=== PATIENT | female | born 1970 | race Caucasian/White ===

== ENCOUNTER 2016-05-05 15:44 | Emergency (ER) | payer MEDICAID ==
[~2016-05-05] VITALS: Wt 68.2 kg
[~2016-05-05 15:44] MED LIST: ACET1TAB40 PO; CETI10CA PO; PANT40TA3 PO; POLY10DR19 LEFT EYE
[2016-05-05] MEDS ORDERED: ONDANSETRON (ODT) 4 MG TAB ODT STA (16:08)
[2016-05-05] MEDS ORDERED: FAMOTIDINE 20 MG TAB PO STA (16:08)
[2016-05-05] MEDS ORDERED: ACETAMINOPHEN 325 MG TAB PO ONE (16:30)
[2016-05-05 16:42] LABS: BASOPHILS % 0.3 % (0.0-2.0); EOSINOPHILS # 0.1 10^3/ul (0.0-0.5); EOSINOPHILS % 2.3 % (0.0-7.0); HEMATOCRIT 39.6 % (37.0-47.0); HEMOGLOBIN 13.5 g/dl (12.0-16.0); LYMPHOCYTES # 1.3 10^3/ul (0.8-2.9); LYMPHOCYTES % 28.3 % (15.0-51.0); MEAN CORPUSCULAR HEMOGLOBIN 32.4 pg (29.0-33.0); MEAN CORPUSCULAR HGB CONC 34.2 g/dl (32.0-37.0); MEAN CORPUSCULAR VOLUME 94.8 fl (82.0-101.0); MEAN PLATELET VOLUME 9.1 fl (7.4-10.4); MONOCYTE # 0.3 10^3/ul (0.3-0.9); MONOCYTES % 7.7 % (0.0-11.0); NEUTROPHIL # 2.8 10^3/ul (1.6-7.5); NEUTROPHILS % 61.4 % (39.0-77.0); PLATELET COUNT 218 10^3/UL (140-440); RED BLOOD COUNT 4.18 10^6/ul (4.20-5.40); RED CELL DISTRIBUTION WIDTH 12.9 % (11.5-14.5); UNCORRECTED WBC 4.5 10^3/ul (4.8-10.8); WHITE BLOOD COUNT 4.5 10^3/ul (4.8-10.8)
[2016-05-05 16:43] LABS: CONDITION 1
[2016-05-05 16:51] LABS: ADD UMIC YES; URINE BILIRUBIN (Dip) NEGATIVE (NEGATIVE); URINE BLOOD (Dip) 2+ (NEGATIVE); URINE COLOR LT. YELLOW (YELLOW); URINE GLUCOSE (Dip) NEGATIVE (NEGATIVE); URINE KETONES (Dip) NEGATIVE (NEGATIVE); URINE LEUKOCYTE ESTERASE (Dip) NEGATIVE (NEGATIVE); URINE NITRITE (Dip) NEGATIVE (NEGATIVE); URINE TOTAL PROTEIN (Dip) NEGATIVE (NEGATIVE); URINE UROBILINOGEN (Dip) 0.2 E.U./dL (0.1-1.0)
[2016-05-05 17:02] LABS: BACTERIA,URINE RARE; SQUAMOUS EPITHELIAL CELL,UR FEW
[2016-05-05 17:03] LABS: ALBUMIN 4.2 g/dl (3.3-4.9); POTASSIUM 4.6 mmol/L (3.5-5.1)
--- NOTE | 2016-05-05 17:04 | RADRPT ---
PROCEDURE: US Abdomen. CLINICAL INDICATION: abdominal pain TECHNIQUE: Multiple real-time images were acquired of the patient's right upper quadrant abdomen a nd retroperitoneum utilizing a high resolution transducer. COMPARISON: None FINDINGS: The liver demonstrates normal echogenicity. The liver is normal in size and no focal solid lesions are seen. The liver measures 13.9 cm in length. The portal vein is patent with normal direction of f low. No intrahepatic biliary dilatation is seen. No gallstones are identified within the gallbladder. There is no pericholecystic fluid or gallbladd er wall thickening. The common bile duct measures 3.6 mm in maximal dimension. The visualized portions of the pancreas are unremarkable. The tail of the pancreas is not seen. No free fluid is identified. The right kidney is normal in size, and demonstrate normal echogenicity and cortical thickness. The right kidney measures 9.3 cm in long dimension. There is no evidence of hydronephrosis. There are no kidney stones. RPTAT: AA IMPRESSION: Unremarkable right upper quadrant abdominal ultrasound. .Anshu Meyer MD, Date Time Electronically viewed and signed by .Anshu Meyer MD, MD on 05/05/2016 17:04 .S/
[2016-05-05 17:05] LABS: CREATININE 0.58 mg/dl (0.44-1.00)
[2016-05-05 17:06] LABS: ALBUMIN/GLOBULIN RATIO 1.4; BILIRUBIN,INDIRECT 0.3 mg/dl (0-1.1); BILIRUBIN,TOTAL 0.3 mg/dl (0.2-1.3); CALCIUM 9.7 mg/dl (8.4-10.2); TOTAL PROTEIN 7.2 g/dl (6.1-8.1)
[2016-05-05] MEDS ORDERED: ONDA8TAB14 PO (17:21)
[2016-05-05] MEDS ORDERED: ACET500C5 PO (17:21)
[2016-05-05] MEDS ORDERED: FAMO-18 PO (17:21)
--- NOTE | 2016-05-05 17:25 | ERD ---
ER Documentation Chief Complaint Date/Time DATE: 05/05/16 TIME: 17:23 Chief Complaint abd pain for the past 3 days. nausea no vomiting. HPI This 46-year-old female presents with epigastric abdominal pain for last 3 days. She has nausea but no vomiting. She denies diarrhea, urinary complaints , cough, chest pain. ROS All systems reviewed and are negative except as per history of present illness. Medications Home Meds Active Scripts Famotidine* (Pepcid*) 20 Mg Tablet, 20 MG PO BID, #20 TAB Prov:JEAN-CLAUDE CISNEROS MD 05/05/16 Ondansetron (Ondansetron Odt) 8 Mg Tab.rapdis, 8 MG PO Q6H Y for NAUSEA AND/OR VOMITING, #8 TAB Prov:JEAN-CLAUDE CISNEROS MD 05/05/16 Acetaminophen* (Tylophen*) 500 Mg Capsule, 1 CAP PO Q6H Y for PAIN AND OR ELEVATED TEMP, #15 CAP Prov:JEAN-CLAUDE CISNEROS MD 05/05/16 Cetirizine Hcl* (Zyrtec*) 10 Mg Capsule, 10 MG PO DAILY, #30 TAB.CHEW Prov:ZACH ANDRES PA-C 12/10/15 Polymyxin B Sulfate-TMP* (Polymyxin B-TMP Eye Drops*) 10 Ml Drops, 1 DROP LEFT EYE QID for 7 Days, EA Prov:ZACH ANDRES PA-C 12/10/15 Acetaminophen with Codeine (Acetaminophen-Cod #3 Tablet) 1 Each Tablet, 1 TAB PO Q6H, #12 TAB Prov:JEAN-CLAUDE CISNEROS MD 11/20/15 Pantoprazole* (Protonix*) 40 Mg Tablet.dr, 40 MG PO DAILY for 30 Days, TAB Prov:JEAN-CLAUDE CISNEROS MD 11/20/15 Allergies Allergies: Coded Allergies: No Known Drug Allergies (Verified Allergy, Mild, 10/28/09) PMhx/Soc Medical and Surgical Hx: pt denies Medical Hx, pt denies Surgical Hx Hx Alcohol Use: No Hx Substance Use: No Hx Tobacco Use: No Smoking Status: Never smoker Physical Exam Vitals Vital Signs Date Time Temp Pulse Resp B/P Pulse Ox O2 Delivery O2 Flow Rate FiO2 05/05/16 15:47 97.8 55 20 146/91 98 Physical Exam Const: [] Alert, [id number] per Head: Atraumatic Eyes: Normal Conjunctiva ENT: Normal External Ears, Nose and Mouth. Neck: Full range of motion..~ No meningismus. Resp: Clear to auscultation bilaterally Cardio: Regular rate and rhythm, no murmurs Abd: Soft, minimal epigastric tenderness, non distended. Normal bowel sounds. No tenderness at McBurney's point and no exquisite Carrillo sign. No rebound. Skin: No petechiae or rashes Back: No midline or flank tenderness Ext: No cyanosis, or edema Neur: Awake and alert Psych: Normal Mood and Affect Result Diagram: 05/05/16 1615 05/05/16 1615 Results 24 hrs Laboratory Tests Test 05/05/16 16:15 Alanine Aminotransferase (ALT/SGPT) 32IU/L Albumin 4.2g/dl Albumin/Globulin Ratio 1.40 Alkaline Phosphatase 80IU/L Anion Gap 16 Aspartate Amino Transf (AST/SGOT) 37IU/L Basophils # 0.010^3/ul Basophils % 0.3% Blood Urea Nitrogen 16mg/dl Calcium Level 9.7mg/dl Carbon Dioxide Level 28mmol/L Chloride Level 102mmol/L Creatinine 0.58mg/dl Direct Bilirubin 0.00mg/dl Eosinophils # 0.110^3/ul Eosinophils % 2.3% Globulin 3.00g/dl Glucose Level 111mg/dl Hematocrit 39.6% Hemoglobin 13.5g/dl Indirect Bilirubin 0.3mg/dl Lipase 98U/L Lymphocytes # 1.310^3/ul Lymphocytes % 28.3% Mean Corpuscular Hemoglobin 32.4pg Mean Corpuscular Hemoglobin Concent 34.2g/dl Mean Corpuscular Volume 94.8fl Mean Platelet Volume 9.1fl Monocytes # 0.310^3/ul Monocytes % 7.7% Neutrophils # 2.810^3/ul Neutrophils % 61.4% Nucleated Red Blood Cells # 0.010^3/ul Nucleated Red Blood Cells % 0.0/100WBC Platelet Count 97098^3/UL Potassium Level 4.6mmol/L Red Blood Count 4.1810^6/ul Red Cell Distribution Width 12.9% Sodium Level 141mmol/L Total Bilirubin 0.3mg/dl Total Protein 7.2g/dl Urine Bacteria RARE Urine Bilirubin NEGATIVE Urine Clarity CLEAR Urine Color LT. YELLOW Urine Glucose NEGATIVE% Urine Hemoglobin 2+ Urine Ketones NEGATIVE Urine Leukocyte Esterase NEGATIVE Urine Microscopic RBC 5-10/HPF Urine Microscopic WBC 0-2/HPF Urine Nitrite NEGATIVE Urine Specific [place] 1.015 Urine Squamous Epithelial Cells FEW Urine Total Protein NEGATIVE Urine Urobilinogen 0.2 E.U./dL Urine pH 7.0 White Blood Count 4.510^3/ul Current Medications Medications (Trade) Dose Ordered Sig/Johnson Route PRN Reason Start Time Stop Time Status Last Admin Dose Admin Famotidine (Pepcid) 20 mg ONCE STAT PO 05/05/16 16:08 05/05/16 16:09 05/05/16 16:31 Ondansetron HCl (Zofran Odt) 8 mg ONCE STAT ODT 05/05/16 16:08 05/05/16 16:09 05/05/16 16:30 Acetaminophen (Tylenol Tab) 650 mg ONCE ONCE PO 05/05/16 16:30 05/05/16 16:31 05/05/16 16:31 Procedures/MDM CBC shows white blood scan of 4.5. CBC otherwise normal. CMP normal and lipase normal. Urine shows hemoglobin without leukocytes, nitrites or glucose. HCG is negative. Right upper quadrant ultrasound shows no acute abnormalities. Patient is given Tylenol and Zofran and minimal tenderness on serial exam. Patient signs and symptoms of gastroenteritis or possibly gastritis. Signs or symptoms do not suggest hepatobiliary disease, appendicitis , acute abdomen, chest pain or pneumonia. She will be treated with Pepcid and Tylenol and Zofran at home and instructions to follow-up with primary doctor this week return to the ER for new or worsening symptoms. Departure Diagnosis: Primary Impression: Abdominal pain Abdominal location: epigastric Qualified Code: R10.13 - Epigastric pain Condition: Stable Patient Instructions: Abdominal Pain Additional Instructions: Examines normal hoy. Cheque otro vez con velazquez doctor primario en el proximo pascal or regresa para mas o nueva simptomas. probablamente un virus que dura 2-4 pascal. cheque otro radha el proximo faizan para mas simptomas- vomito, dolor, mariam, problemas con respirando, o con velazquez doctor primario. JEAN-CLAUDE CISNEROS MD May 05, 2016 17:25
== END 2016-05-05 17:37 | disposition home or self-care (01) ==
LOC: FTE 15:44
DX: R10.13 Epigastric pain (principal); R11.0 Nausea
CPT/HCPCS: 36415; 76705; 80053; 81001; 83690; 85025; Z7502; Z7610; 81003

== ENCOUNTER 2016-11-11 14:03 | Emergency (ER) | payer MEDICAID ==
[~2016-11-11] VITALS: Ht 165.1 cm; Wt 67.0 kg
[~2016-11-11 14:03] MED LIST changes: +ACET500C5 PO; +FAMO-96 PO; +ONDA8TAB14 PO; +SUCR1TAB56 PO
[2016-11-11 14:10] VITALS: Ht 165.1 cm; Wt 67.0 kg
[2016-11-11] MEDS ORDERED: ONDANSETRON (ODT) 4 MG TAB ODT STA (14:30)
[2016-11-11] MEDS ORDERED: HYDROCODONE/APAP (5/325) TAB PO ONE (14:30)
[2016-11-11 15:15] LABS: BASOPHILS % 0.4 % (0.0-2.0); EOSINOPHILS # 0.2 10^3/ul (0.0-0.5); HEMATOCRIT 38.9 % (37.0-47.0); HEMOGLOBIN 12.9 g/dl (12.0-16.0); LYMPHOCYTES # 1.2 10^3/ul (0.8-2.9); LYMPHOCYTES % 23.6 % (15.0-51.0); MEAN CORPUSCULAR HEMOGLOBIN 30.9 pg (29.0-33.0); MEAN CORPUSCULAR HGB CONC 33.2 g/dl (32.0-37.0); MEAN CORPUSCULAR VOLUME 93.1 fl (82.0-101.0); MEAN PLATELET VOLUME 10.4 fl (7.4-10.4); MONOCYTE # 0.4 10^3/ul (0.3-0.9); MONOCYTES % 7.8 % (0.0-11.0); NEUTROPHILS % 64.8 % (39.0-77.0); PLATELET COUNT 212 10^3/UL (140-415); RED BLOOD COUNT 4.18 10^6/ul (4.20-5.40); RED CELL DISTRIBUTION WIDTH 12.9 % (11.5-14.5)
[2016-11-11 15:28] LABS: ADD UMIC YES; UR ASCORBIC ACID NEGATIVE (NEGATIVE); UR BACTERIA FEW /HPF (NONE SEEN); UR BILIRUBIN (Dip) NEGATIVE (NEGATIVE); UR BLOOD (Dip) 3+ mg/dL (NEGATIVE); UR CLARITY SLIGHTLY CLOUDY (CLEAR); UR COLOR YELLOW (YELLOW); UR GLUCOSE (Dip) NEGATIVE (NEGATIVE); UR KETONES (Dip) NEGATIVE (NEGATIVE); UR LEUKOCYTE ESTERASE (Dip) TRACE Leu/ul (NEGATIVE); UR MUCUS FEW /HPF (NONE SEEN); UR NITRITE (Dip) NEGATIVE (NEGATIVE); UR RBC 2 /HPF (0-5); UR SQUAMOUS EPITHELIAL CELL FEW /HPF (FEW); UR TOTAL PROTEIN (Dip) NEGATIVE (NEGATIVE); UR UROBILINOGEN (Dip) NEGATIVE (NEGATIVE)
--- NOTE | 2016-11-11 15:32 | RADRPT ---
PROCEDURE: CT abdomen and pelvis without contrast. CLINICAL INDICATION: Abdominal pain. TECHNIQUE: CT of the abdomen and pelvis without contrast was performed on a multidetector high-reso lution CT scanner. Coronal and sagittal reformatted images were obtained from the axial source image s. Images were reviewed on a high-resolution PACS workstation. The total exam CTDI equals 8.82 mGy a nd the total exam DLP equals 469.29 mGy-cm. One or more of the following dose reduction techniques were used: - Automated exposure control. - Adjustment of the mA and/or kV according to patient size. - Use of iterative reconstruction technique. COMPARISON: Abdominal ultrasound dated 05/05/2016. FINDINGS: Visualized lower thorax: The visualized lung bases are clear. The visualized heart is unremarkable. Hepatobiliary system and spleen: The liver is grossly unremarkable. There is no intra or extrahepat ic biliary ductal dilatation. The gallbladder is grossly unremarkable. The spleen is grossly unremar kable. The pancreas is grossly unremarkable. Adrenal glands and genitourinary system: The adrenal glands are grossly unremarkable. There is no n ephrolithiasis or hydronephrosis. The urinary bladder is grossly unremarkable. The uterus is retrof lexed, but otherwise grossly unremarkable. The adnexa are grossly unremarkable. Gastrointestinal system: The stomach and small bowel are unremarkable. There is no bowel wall thick ening or evidence of obstruction. The appendix is not identified, but there are no secondary finding s of appendicitis. Peritoneum, vascular, and lymphatics: There is no free intraperitoneal air or free fluid. There is no mesenteric or retroperitoneal adenopathy. The aorta is nonaneurysmal. Musculoskeletal system and soft tissues: There are no concerning osseous lesions. The soft tissues are unremarkable. IMPRESSION: 1. No acute abnormality or findings to suggest a source of the patient's symptoms. RPTAT: HLBP .Obey Camargo MD, MD Date Time Electronically viewed and signed by .bOey Camargo MD, MD on 11/11/2016 15:31 .P/
--- NOTE | 2016-11-11 15:33 | RADRPT ---
PROCEDURE: US Pelvis CLINICAL INDICATION: Pelvic pain TECHNIQUE: Sonographic evaluation of the pelvis was performed utilizing both transabdominal and tr ansvaginal technique. Curved array transabdominal transducer technique as well as a high frequency endovaginal probe was utilized. Images were reviewed on the high-resolution PACS workstation. COMPARISON: None available FINDINGS: The uterus is normal in size, echogenicity, and morphology measuring 7.0 x 4.3 x 4.5 cm in dimension . The uterus is retroverted. The endometrium measures 6.5 mm in diameter. The normal trilaminar stripe of the endometrium is preserved. Cervical Nabothian cyst is incidentally noted. The right ovary measures 2.5 x 1.5 x 1.8 cm in dimension. The left ovary measures 2.5 x 1.3 x 1.8 c m in dimension. No ovarian torsion or adnexal mass is identified. Trace amount of pelvic free flui d is noted. IMPRESSION: 1. Nonspecific trace amount of pelvic free fluid is seen, possibly physiologic. 2. Retroverted uterus. 3. Otherwise unremarkable exam. RPTAT: HDWR .Roosevelt Yates MD, MD Date Time Electronically viewed and signed by .Roosevelt Yates MD, MD on 11/11/2016 15:32 .R/
[2016-11-11 15:41] LABS: ALBUMIN 4.4 g/dl (3.3-4.9); ALBUMIN/GLOBULIN RATIO 1.33; BILIRUBIN,INDIRECT 0.3 mg/dl (0-1.1); BILIRUBIN,TOTAL 0.3 mg/dl (0.2-1.3); CALCIUM 9.1 mg/dl (8.4-10.2); CREATININE 0.72 mg/dl (0.44-1.00); POTASSIUM 3.7 mmol/L (3.5-5.1); TOTAL PROTEIN 7.7 g/dl (6.1-8.1)
--- NOTE | 2016-11-11 15:42 | ERD ---
ER Documentation Chief Complaint Date/Time DATE: 11/11/16 TIME: 15:39 Chief Complaint Complains od pelvic pain x 1 week HPI 46-year-old female patient with no significant past medical history presents the ED complaining of abdominal pain that started intermittently for 2 weeks. Reports that her last menses was 2 months ago. States that she is not . Describes the pain as achy and rates it a 8 out of 10. Reports that it is diffusely painful however it is predominantly in her left upper and lower quadrants. Reports that she has some slight dysuria. Reports that she has been taking omeprazole, sucralfate, Reglan. States that she was seen at all of you and had a negative ultrasound as well as blood work however the pain still persists. Denies any vaginal discharge, vaginal bleeding, vomiting, diarrhea, urgency, frequency, hematuria. ROS All systems reviewed and are negative except as per history of present illness. Medications Home Meds Active Scripts Cephalexin* (Keflex*) 500 Mg Capsule, 500 MG PO QID for 7 Days, CAP Prov:ZACH ANDRES PA-C 11/11/16 Acetaminophen* (Tylophen*) 500 Mg Capsule, 2 CAP PO Q8H Y for PAIN AND OR ELEVATED TEMP, #20 CAP Prov:ZACH ANDRES PA-C 11/11/16 Sucralfate* (Carafate*) 1 Gm Tab, 1 GM PO QID for 7 Days, TAB Prov:SRAVANTANI RUEDA C 06/15/16 Famotidine* (Pepcid*) 20 Mg Tablet, 20 MG PO BID for 14 Days, TAB Prov:TANI HINSON C 06/15/16 Famotidine* (Pepcid*) 20 Mg Tablet, 20 MG PO BID, #20 TAB Prov:JEAN-CLAUDE CISNEROS MD 05/05/16 Ondansetron (Ondansetron Odt) 8 Mg Tab.rapdis, 8 MG PO Q6H Y for NAUSEA AND/OR VOMITING, #8 TAB Prov:JEAN-CLAUDE CISNEROS MD 05/05/16 Acetaminophen* (Tylophen*) 500 Mg Capsule, 1 CAP PO Q6H Y for PAIN AND OR ELEVATED TEMP, #15 CAP Prov:JEAN-CLAUDE CISNEROS MD 05/05/16 Cetirizine Hcl* (Zyrtec*) 10 Mg Capsule, 10 MG PO DAILY, #30 TAB.CHEW Prov:ZACH ANDRES Albert DOYLE 12/10/15 Polymyxin B Sulfate-TMP* (Polymyxin B-TMP Eye Drops*) 10 Ml Drops, 1 DROP LEFT EYE QID for 7 Days, EA Prov:ZACH ANDRES Albert DOYLE 12/10/15 Acetaminophen with Codeine (Acetaminophen-Cod #3 Tablet) 1 Each Tablet, 1 TAB PO Q6H, #12 TAB Prov:JEAN-CLAUDE CISNEROS MD 11/20/15 Pantoprazole* (Protonix*) 40 Mg Tablet.dr, 40 MG PO DAILY for 30 Days, TAB Prov:JEAN-CLAUDE CISNEROS MD 11/20/15 Allergies Allergies: Coded Allergies: No Known Allergies (Verified Allergy, Mild, 11/11/16) PMhx/Soc History of Surgery: Yes (C SECTION ) Hx Neurological Disorder: No Hx Respiratory Disorders: No Hx Cardiac Disorders: No Hx Miscellaneous Medical Probl: Yes (THYROID) Hx Alcohol Use: No Hx Substance Use: No Hx Tobacco Use: No Smoking Status: Never smoker Physical Exam Vitals Vital Signs Date Time Temp Pulse Resp B/P Pulse Ox O2 Delivery O2 Flow Rate FiO2 11/11/16 14:10 98.3 55 20 126/63 100 Physical Exam Const: [id number], well-nourished. In no acute distress. Head: Atraumatic, normocephalic Eyes: Normal Conjunctiva without injection. No purulent discharge. ENT: Normal external ear, nose. Moist oropharynx without tonsillar exudates. Non -erythematous pharynx. Uvula midline. No drooling. No trismus. Neck: No cervical midline tenderness. Full range of motion. No meningismus. No cervical lymphadenopathy. No JVD. Resp: Clear to auscultation bilaterally. No wheezing, rhonchi, rales, or crackles. No accessory muscle use. No retractions. Cardio: Regular rate and rhythm. No murmurs, rubs or gallops. Abd: Soft, diffuse tenderness, predominantly in the left upper, mid abdomen and lower quadrants, non distended. Normal bowel sounds. No palpable masses. No rebound tenderness. No guarding. Negative McBurney's point. Negative psoas sign. Negative obturator sign. Skin: No petechiae or rashes Back: No midline tenderness. No CVA tenderness. Ext: No cyanosis, or edema. Neur: Awake and alert. Normal gait. Normal coordination. Psych: Normal Mood and Affect Results 24 hrs Laboratory Tests Test 11/11/16 14:40 White Blood Count 5.010^3/ul Red Blood Count 4.1810^6/ul Hemoglobin 12.9g/dl Hematocrit 38.9% Mean Corpuscular Volume 93.1fl Mean Corpuscular Hemoglobin 30.9pg Mean Corpuscular Hemoglobin Concent 33.2g/dl Red Cell Distribution Width 12.9% Platelet Count 72189^3/UL Mean Platelet Volume 10.4fl Neutrophils % 64.8% Lymphocytes % 23.6% Monocytes % 7.8% Eosinophils % 3.0% Basophils % 0.4% Nucleated Red Blood Cells % 0.0/100WBC Neutrophils # (Manual) 310^3/ul Lymphocytes # 1.210^3/ul Monocytes # 0.410^3/ul Eosinophils # 0.210^3/ul Basophils # 0.010^3/ul Nucleated Red Blood Cells # 0.010^3/ul Urine Color YELLOW Urine Clarity SLIGHTLY CLOUDY Urine pH 5.0 Urine Specific [place] 1.020 Urine Ketones NEGATIVEmg/dL Urine Nitrite NEGATIVEmg/dL Urine Bilirubin NEGATIVEmg/dL Urine Urobilinogen NEGATIVEmg/dL Urine Leukocyte Esterase TRACELeu/ul Urine Microscopic RBC 2/HPF Urine Microscopic WBC 3/HPF Urine Squamous Epithelial Cells FEW/HPF Urine Bacteria FEW/HPF Urine Mucus FEW/HPF Urine Hemoglobin 3+mg/dL Urine Glucose NEGATIVEmg/dL Urine Total Protein NEGATIVEmg/dl Sodium Level 140mmol/L Potassium Level 3.7mmol/L Chloride Level 105mmol/L Carbon Dioxide Level 26mmol/L Anion Gap 13 Blood Urea Nitrogen 16mg/dl Creatinine 0.72mg/dl Glucose Level 83mg/dl Calcium Level 9.1mg/dl Total Bilirubin 0.3mg/dl Direct Bilirubin 0.00mg/dl Indirect Bilirubin 0.3mg/dl Aspartate Amino Transf (AST/SGOT) 30IU/L Alanine Aminotransferase (ALT/SGPT) 39IU/L Alkaline Phosphatase 85IU/L Total Protein 7.7g/dl Albumin 4.4g/dl Globulin 3.30g/dl Albumin/Globulin Ratio 1.33 Lipase 112U/L Current Medications Medications (Trade) Dose Ordered Sig/Johnson Route PRN Reason Start Time Stop Time Status Last Admin Dose Admin Acetaminophen/ Hydrocodone Bitart ([place] (5/325)) 1 tab ONCE ONCE PO 11/11/16 14:30 11/11/16 14:33 DC 11/11/16 15:05 Ondansetron HCl (Zofran Odt) 4 mg ONCE STAT ODT 11/11/16 14:30 11/11/16 14:33 DC 11/11/16 15:05 Procedures/MDM 46-year-old female patient with no significant past medical history presents the ED complaining of left upper and lower quadrant abdominal pain. Patient is afebrile nontoxic appearing. Patient has normal vital signs. Patient was further worked up with CBC, CMP, lipase, UA, urine , CT of the abdomen and pelvis without a contrast. Patient's pain and symptoms have improved after treatment with [place] and Zofran. CBC: No leukocytosis. No e/o of systemic infection. No e/o anemia. CMP: No e/o severe acidosis, alkalosis, renal failure, diabetic ketoacidosis, liver disease Lipase within normal limits. Urine: Trace leukocyte esterase, no nitrites, 3+ hematuria. Urine : negative PROCEDURE: CT abdomen and pelvis without contrast. CLINICAL INDICATION: Abdominal pain. TECHNIQUE: CT of the abdomen and pelvis without contrast was performed on a multidetector high-resolution CT scanner. Coronal and sagittal reformatted images were obtained from the axial source images. Images were reviewed on a high-resolution PACS workstation. The total exam CTDI equals 8.82 mGy and the total exam DLP equals 469.29 mGy-cm. One or more of the following dose reduction techniques were used: - Automated exposure control. - Adjustment of the mA and/or kV according to patient size. - Use of iterative reconstruction technique. COMPARISON: Abdominal ultrasound dated 05/05/2016. FINDINGS: Visualized lower thorax: The visualized lung bases are clear. The visualized heart is unremarkable. Hepatobiliary system and spleen: The liver is grossly unremarkable. There is no intra or extrahepatic biliary ductal dilatation. The gallbladder is grossly unremarkable. The spleen is grossly unremarkable. The pancreas is grossly unremarkable. Adrenal glands and genitourinary system: The adrenal glands are grossly unremarkable. There is no nephrolithiasis or hydronephrosis. The urinary bladder is grossly unremarkable. The uterus is retroflexed, but otherwise grossly unremarkable. The adnexa are grossly unremarkable. Gastrointestinal system: The stomach and small bowel are unremarkable. There is no bowel wall thickening or evidence of obstruction. The appendix is not identified, but there are no secondary findings of appendicitis. Peritoneum, vascular, and lymphatics: There is no free intraperitoneal air or free fluid. There is no mesenteric or retroperitoneal adenopathy. The aorta is nonaneurysmal. Musculoskeletal system and soft tissues: There are no concerning osseous lesions. The soft tissues are unremarkable. IMPRESSION: 1. No acute abnormality or findings to suggest a source of the patient's symptoms. PROCEDURE: US Pelvis CLINICAL INDICATION: Pelvic pain TECHNIQUE: Sonographic evaluation of the pelvis was performed utilizing both transabdominal and transvaginal technique. Curved array transabdominal transducer technique as well as a high frequency endovaginal probe was utilized. Images were reviewed on the high-resolution PACS workstation. COMPARISON: None available FINDINGS: The uterus is normal in size, echogenicity, and morphology measuring 7.0 x 4.3 x 4.5 cm in dimension. The uterus is retroverted. The endometrium measures 6.5 mm in diameter. The normal trilaminar stripe of the endometrium is preserved. Cervical Nabothian cyst is incidentally noted. The right ovary measures 2.5 x 1.5 x 1.8 cm in dimension. The left ovary measures 2.5 x 1.3 x 1.8 cm in dimension. No ovarian torsion or adnexal mass is identified. Trace amount of pelvic free fluid is noted. IMPRESSION: 1. Nonspecific trace amount of pelvic free fluid is seen, possibly physiologic. 2. Retroverted uterus. 3. Otherwise unremarkable exam. Patient will be treated for a possible urinary tract infection. CT showed no signs of acute abdomen. Low suspicion for gastritis, GERD, peptic ulcer disease , cholecystitis, choledocholithiasis, cholangitis, pancreatitis, appendicitis, bowel obstruction, ileus, volvulus, nephrolithiasis, pyelonephritis, hepatitis, perforated viscus, diverticulitis, abdominal hernia, acute abdomen, mesenteric ischemia or other emergent conditions. Discharge medications: Keflex, Tylenol Follow up with primary care physician in 1-2 days for referral to tariff counsel. Instructed patient to return to the ED sooner for any worsening symptoms. Patient's questions were answered. Patient understood and agreed with discharge plan. Patient discharged stable. Departure Diagnosis: Primary Impression: Abdominal pain Abdominal location: periumbilical Qualified Code: R10.33 - Periumbilical abdominal pain Condition: Stable ZACH ANDRES PA-C Nov 11, 2016 15:42
[2016-11-11] MEDS ORDERED: ACET500C5 PO (15:55)
[2016-11-11] MEDS ORDERED: CEPH-443 PO (15:55)
== END 2016-11-11 16:11 | disposition home or self-care (01) ==
LOC: FTE 14:03
DX: R10.33 Periumbilical pain (principal)
CPT/HCPCS: 36415; 74176; 76830; 76856; 80053; 81001; 83690; 85025; Z7502; Z7610

== ENCOUNTER 2017-02-23 14:44 | Emergency (ER) | payer MEDICAID ==
[~2017-02-23] VITALS: Ht 157.5 cm; Wt 68.0 kg
[~2017-02-23 14:44] MED LIST changes: +CEPH-443 PO
[2017-02-23 14:47] VITALS: Ht 157.5 cm; Wt 68.0 kg
[2017-02-23] MEDS ORDERED: ONDANSETRON (ODT) 4 MG TAB ODT STA (15:19)
[2017-02-23] MEDS ORDERED: ACETAMINOPHEN 325 MG TAB PO ONE (15:30)
[2017-02-23 15:34] LABS: URINE BLOOD (Dip) POC Negative (NEGATIVE)
--- NOTE | 2017-02-23 17:48 | RADRPT ---
PROCEDURE: CT brain without IV contrast. CLINICAL INDICATION: Headache. TECHNIQUE: CT examination of the brain was performed on a 64-slice multidetector scanner. The pat ient was examined without IV contrast. Sagittal and coronal reformatted images were made. The imag es were reviewed on a PACS workstation. DICOM images are available. Total radiation dose: Total CTDIvol: 43 mGy. Total DLP: 630 mGy-cm. One or more of the following dose reduction techniques were used: automated exposure control, adjustment of the mA and/or kV acco rding to patient size, or use of iterative reconstruction technique COMPARISON: None available. FINDINGS: The ventricles and cerebral sulci are normal in size and morphology. The fish/white matter different iation is well preserved. There is no other abnormal intra-axial high, low density lesion, suggesti ng tumor, infarct, bleeding, av malformation or inflammatory mass. No subdural or epidural hematoma. No midline shift. The visualized paranasal sinuses and mastoid ai r cells are clear. The orbits are unremarkable. The calvarium is intact. No scalp abnormalities a re seen. IMPRESSION: 1. Unremarkable CT brain without IV contrast. RPTAT: GG .Ruddy Savage MD, MD Date Time Electronically viewed and signed by .Ruddy Savage MD, on 02/23/2017 17:48 .Y/
[2017-02-23] MEDS ORDERED: FIORICET PO (18:08)
--- NOTE | 2017-02-23 18:14 | ERD ---
ER Documentation Chief Complaint Chief Complaint pt bib family with c/o headache x 1 wk, HPI 46-year-old female presents with a occipital headache for last week. She denies any history of trauma. She feels chills but no measured fevers. She denies urinary complaints, cough, short throat, neck stiffness, visual changes. Patient points to her bilateral C1 area as the source of her pain. ROS All systems reviewed and are negative except as per history of present illness. Medications Home Meds Active Scripts Acetamin/Butalbital/Caffeine* (Fioricet*) [id number] Tab, 1 TAB PO Q6H Y for PAIN, #20 TAB Prov:JEAN-CLAUDE CISNEROS MD 02/23/17 Cephalexin* (Keflex*) 500 Mg Capsule, 500 MG PO QID for 7 Days, CAP Prov:ZACH ANDRES PA-C 11/11/16 Acetaminophen* (Tylophen*) 500 Mg Capsule, 2 CAP PO Q8H Y for PAIN AND OR ELEVATED TEMP, #20 CAP Prov:ZACH ANDRES PA-C 11/11/16 Sucralfate* (Carafate*) 1 Gm Tab, 1 GM PO QID for 7 Days, TAB Prov:SRAVAN,TANI C 06/15/16 Famotidine* (Pepcid*) 20 Mg Tablet, 20 MG PO BID for 14 Days, TAB Prov:SRAVAN,TANI C 06/15/16 Famotidine* (Pepcid*) 20 Mg Tablet, 20 MG PO BID, #20 TAB Prov:JEAN-CLAUDE CISNEROS MD 05/05/16 Ondansetron (Ondansetron Odt) 8 Mg Tab.rapdis, 8 MG PO Q6H Y for NAUSEA AND/OR VOMITING, #8 TAB Prov:JEAN-CLAUDE CISNEROS MD 05/05/16 Acetaminophen* (Tylophen*) 500 Mg Capsule, 1 CAP PO Q6H Y for PAIN AND OR ELEVATED TEMP, #15 CAP Prov:JEAN-CLAUDE CISNEROS MD 05/05/16 Cetirizine Hcl* (Zyrtec*) 10 Mg Capsule, 10 MG PO DAILY, #30 TAB.CHEW Prov:ZACH ANDRES PA-C 12/10/15 Polymyxin B Sulfate-TMP* (Polymyxin B-TMP Eye Drops*) 10 Ml Drops, 1 DROP LEFT EYE QID for 7 Days, EA Prov:ZACH ANDRES PA-C 12/10/15 Acetaminophen with Codeine (Acetaminophen-Cod #3 Tablet) 1 Each Tablet, 1 TAB PO Q6H, #12 TAB Prov:JEAN-CLAUDE CISNEROS MD 11/20/15 Pantoprazole* (Protonix*) 40 Mg Tablet.dr, 40 MG PO DAILY for 30 Days, TAB Prov:EJAN-CLAUDE CISNEROS MD 11/20/15 Allergies Allergies: Coded Allergies: No Known Allergies (Verified Allergy, Mild, 11/11/16) PMhx/Soc History of Surgery: Yes (C SECTION ) Hx Neurological Disorder: No Hx Respiratory Disorders: No Hx Cardiac Disorders: No Hx Miscellaneous Medical Probl: Yes (THYROID) Hx Alcohol Use: No Hx Substance Use: No Hx Tobacco Use: No Smoking Status: Never smoker Physical Exam Vitals Vital Signs Date Time Temp Pulse Resp B/P Pulse Ox O2 Delivery O2 Flow Rate FiO2 02/23/17 14:47 97.9 66 16 130/74 99 Physical Exam Const: [], [id number]. Head: Atraumatic Eyes: Normal Conjunctiva. Eyes PERRLA and extraocular movements intact. ENT: Normal External Ears, Nose and Mouth. TMs and oropharynx normal. Neck: Full range of motion..~ No meningismus. Resp: Clear to auscultation bilaterally Cardio: Regular rate and rhythm, no murmurs Abd: Soft, non tender, non distended. Normal bowel sounds Skin: No petechiae or rashes Back: No midline or flank tenderness Ext: No cyanosis, or edema Neur: Awake and alert. Cranial nerves II through XII grossly intact. No cerebellar signs. No appreciable focal neurologic deficits. Normal gait. Psych: Normal Mood and Affect Results 24 hrs Laboratory Tests Test 02/23/17 15:33 Bedside Urine pH (LAB) 6.5 Bedside Urine Protein (LAB) Negative Bedside Urine Glucose (UA) Negative Bedside Urine Ketones (LAB) Negative Bedside Urine Blood Negative Bedside Urine Nitrite (LAB) Negative Bedside Urine Leukocyte Esterase (L Negative Current Medications Medications (Trade) Dose Ordered Sig/Johnson Route PRN Reason Start Time Stop Time Status Last Admin Dose Admin Acetaminophen (Tylenol Tab) 650 mg ONCE ONCE PO 02/23/17 15:30 12/2/17 15:31 DC 02/23/17 15:34 Ondansetron HCl (Zofran Odt) 8 mg ONCE STAT ODT 02/23/17 15:19 02/23/17 15:21 DC 02/23/17 15:34 Procedures/MDM Urine is negative. Tylenol was given for headache. CT brain and uncertain cause of headache was performed which was read as normal by the radiologist. Patient presents with occipital or cervical headache of uncertain etiology without signs to suggest meningitis, hemorrhage, ischemia, bacterial infection, neurologic deficit, central lesions, fracture, dislocation, we treated with Fioricet and primary care follow-up and return precautions. The patient was stable with no new complaints during the ER course. Clinically, there is no current evidence to suggest meningitis, sepsis, acute abdomen, pneumonia, acute coronary syndrome, pulmonary embolism, or any other emergent condition appearing to require further evaluation or hospitalization. The patient should certainly return for any new or worsening symptoms per the aftercare instructions. They should otherwise follow-up with her primary care doctor for reevaluation this week. Departure Diagnosis: Primary Impression: Headache Headache type: unspecified Headache chronicity pattern: unspecified pattern Intractability: not intractable Qualified Code: R51 - Nonintractable headache, unspecified chronicity pattern, unspecified headache type Condition: Stable Patient Instructions: Headache, Unspecified [facility] Usted se chao hecho un examen mdico de control que le indica que no est en ld condicin que requiera tratamiento urgente en el Departamento de Emergencia. Un estudio ms profundo y el tratamiento de velazquez condicin pueden esperar sin ningn riesgo hasta que usted sea atendida/o en el consultorio de velazquez mdico o ld cl jad. Es responsabilidad suya arreglar ld nicole para el seguimiento del kim. MANEJO DE CONDICIONES NO URGENTES EN EL FUTURO 1) Si usted tiene un mdico de atencin primaria: Usted debera llamar a velazquez mdico de atencin primaria antes de venir al departamento de emergencia. Despus de las horas de consultorio, velazquez doctor o velazquez asociado/a est disponible por telfono. El mdico o enfermero de tonya en el servicio telefnico puede asesorarle por kajal medio para atender el problema, o kim contrario se puede programar ld nicole. 2) Si usted no tiene un mdico de atencin primaria: Llame al mdico o clnica de referencia que aparece abajo staci las horas de consultorio para hacer ld nicole para que le vean. CLINICAS: [facility] [phone] [facility] [phone] [facility] [phone] [address] [place] [phone] [facility] [place] [phone] [facility]. [phone] Additional Instructions: CT normal. Urine normal. Examines normal hoy. Cheque otro vez con velazquez doctor primario en el proximo pascal or regresa para mas o nueva simptomas. JEAN-CLAUDE CISNEROS MD Feb 23, 2017 18:14
== END 2017-02-23 18:15 | disposition home or self-care (01) ==
LOC: FTE 14:44
DX: R51 Headache (principal)
CPT/HCPCS: 70450; 81003; Z7502; Z7610; 99284

== ENCOUNTER 2017-04-28 09:21 | Emergency (ER) | END 2017-04-28 13:59 | disposition home or self-care (01) ==

== ENCOUNTER 2018-02-08 18:50 | Emergency (ER) | END 2018-02-08 21:03 | disposition home or self-care (01) ==